=== PATIENT | female | born 1985 | race Caucasian/White ===

== ENCOUNTER 2018-03-28 14:10 | Inpatient (IN) | payer OTHER, SELFPAY ==
[2018-03-28 14:57] VITALS: BMI 30.2
[2018-03-28] MEDS ORDERED: Bupivacaine 0.75% W/DEXTROSE 8.25% 2 ML AMP ONE (15:34)
[2018-03-28] MEDS ORDERED: Morphine PF 1 MG/ML SYR ONE (15:35)
[2018-03-28] MEDS ORDERED: Lidocaine 1% PF 5 ML VIAL ONE (15:36)
[2018-03-28] MEDS ORDERED: ePHEDrine/0.9% NaCl/PF SYRINGE 50 mg/10 ml ONE (15:46)
[2018-03-28] MEDS ORDERED: Oxytocin 10 UNITS/ML VIAL ONE ×2 (16:16→16:17)
[2018-03-28] MEDS ORDERED: Ketorolac Tromethamine 30 MG/ML VIAL ONE (16:16)
[2018-03-28 16:19] LABS: Actual Bicarbonate (HCO3v) 24 mEq/L (22-28); Base Excess -3.4 mEq/L (-2.0 to +3.0); pH (Cord, venous) 7.29 (7.32-7.43)
[2018-03-28 16:20] LABS: Base Excess (BEa) -3.7 mEq/L (-2.0 to +3.0)
[2018-03-28] MEDS ORDERED: Ondansetron HCl/PF 4 MG/2 ML Vial IVP PRN ×5 (16:21→17:39)
[2018-03-28] MEDS ORDERED: Promethazine HCl 25 MG/ML VIAL IM PRN ×2 (16:21→17:06)
[2018-03-28] MEDS ORDERED: Ketorolac Tromethamine 30 MG/ML VIAL IVP PRN (16:21)
[2018-03-28] MEDS ORDERED: Naloxone HCl 0.4 mg/ml Vial IVP PRN ×4 (16:21→17:06)
[2018-03-28] MEDS ORDERED: HYDROmorphone 2 MG/ML VIAL SLOW IVP PRN ×2 (16:21→17:06)
[2018-03-28] MEDS ORDERED: diphenhydrAMINE 50 MG/ML VIAL IVP PRN ×2 (16:21→17:06)
[2018-03-28] MEDS ORDERED: Meperidine HCl/PF 25 MG/ML VIAL SLOW IVP PRN ×2 (16:21→17:06)
[2018-03-28] MEDS ORDERED: Naloxone HCl 0.4 mg/ml Vial IV PRN ×2 (16:21→17:06)
[2018-03-28] MEDS ORDERED: Eucerin (Mineral Oil/Petrolatum,White) 30 gm Jar TOP PRN ×2 (16:21→17:06)
[2018-03-28] MEDS ORDERED: Promethazine HCl 25 MG SUPP PR PRN ×2 (16:21→17:06)
[2018-03-28] MEDS ORDERED: Dexamethasone 4 mg/ml Vial ONE (16:26)
[2018-03-28] MEDS ORDERED: Ketorolac Tromethamine 30 MG/ML VIAL IVP SCH ×2 (16:30→17:15)
[2018-03-28] MEDS ORDERED: Communication Order-Pharmacy FS SCH ×2 (16:30→17:15)
[2018-03-28] MEDS ORDERED: Bicitra 30 ML UDCUP ONE (17:37)
[2018-03-28] MEDS ORDERED: CEFAZOLIN/Water 2 GM/20 ML SYRINGE ONE (17:37)
[2018-03-28] MEDS ORDERED: Zolpidem Tartrate 5 MG TAB PO PRN (17:39)
[2018-03-28] MEDS ORDERED: Milk Of Magnesia 30 ML UDCUP PO PRN (17:39)
[2018-03-28] MEDS ORDERED: Adacel (T-DAP) 0.5 ML VIAL IM ONE (17:39)
[2018-03-28] MEDS ORDERED: Bisacodyl 10 MG SUPP PR PRN (17:39)
[2018-03-28] MEDS ORDERED: Benzocaine/Menthol 20-0.5% 60 ML CAN TOP PRN (17:39)
[2018-03-28] MEDS ORDERED: Preparation H Ointment 28 GM TUBE PR PRN (17:39)
[2018-03-28] MEDS ORDERED: Lanolin Ointment 7 GM TUBE TOP PRN (17:39)
[2018-03-28] MEDS ORDERED: NS / Oxytocin 40 units/1000ml 1,000 ML ONE (17:40)
[2018-03-28] MEDS ORDERED: NS / Oxytocin 40 units/1000ml 1,000 ML IV SCH (17:45)
[2018-03-28 18:48] LABS: Hemoglobin 12.1 g/dL (12.0-16.0); Mean Corpuscular HGB CONC 35.2 g/dL (32.0-36.0); Mean Corpuscular Hemoglobin 32.3 pg (27.0-31.0); Mean Corpuscular Volume 91.7 fL (78.0-98.0); Mean Platelet Volume 8.3 fL (7.4-10.4); Platelet Count 201 thou/uL (130-400); RBC Distribution Width 11.2 % (11.5-14.5); Red Blood Cell (RBC) Count 3.74 mill/uL (4.20-5.40); White Blood Cell (WBC) Count 21.5 thou/uL (4.8-10.8)
[2018-03-28 19:39] LABS: HBSAB Concentration 0.93 mIU/mL; HIV (1/2) Antibody/Antigen Non-Reactive (NonReactive); HIV 1/2 INDEX 0.14 S/CO (<1.00); Hep B Surf AB Non-Reactive (NonReactive)
[2018-03-28] MEDS: Ketorolac Tromethamine 30 MG/ML VIAL IVP PRN (23:38)
[2018-03-28] MEDS: Docusate Calcium (SURFAK) 240 MG CAP PO SCH (23:38)
[2018-03-29] MEDS: Ketorolac Tromethamine 30 MG/ML VIAL IVP PRN (05:54)
[2018-03-29] MEDS: diphenhydrAMINE 25 MG CAP PO PRN ×2 (06:28→13:59)
[2018-03-29] MEDS: Docusate Calcium (SURFAK) 240 MG CAP PO SCH ×2 (09:14→19:49)
[2018-03-29] MEDS: Prenatal Vitamin 1 TAB PO SCH (09:14)
[2018-03-29] MEDS: Ferrous Sulfate 325 MG TAB PO SCH ×2 (09:15→18:32)
[2018-03-29 11:47] LABS: Hemoglobin 11.5 g/dL (12.0-16.0); Mean Corpuscular HGB CONC 35.1 g/dL (32.0-36.0); Mean Corpuscular Hemoglobin 32.6 pg (27.0-31.0); Mean Corpuscular Volume 92.7 fL (78.0-98.0); Platelet Count 179 thou/uL (130-400); RBC Distribution Width 11.3 % (11.5-14.5); Red Blood Cell (RBC) Count 3.51 mill/uL (4.20-5.40); White Blood Cell (WBC) Count 20.1 thou/uL (4.8-10.8)
[2018-03-29] MEDS: HYDROcodone/Acetaminophen 5/325 mg Tablet PO PRN (13:59)
[2018-03-29] MEDS: Lactated Ringer's 1,000 ML IV SCH (18:29)
[2018-03-29] MEDS: Ibuprofen 800 MG TAB PO SCH (19:49)
[2018-03-30] MEDS: HYDROcodone/Acetaminophen 5/325 mg Tablet PO PRN ×3 (02:21→20:27)
[2018-03-30] MEDS: Lactated Ringer's 1,000 ML IV SCH ×5 (03:18→22:28)
[2018-03-30] MEDS: Ibuprofen 800 MG TAB PO SCH ×3 (05:13→22:17)
[2018-03-30] MEDS: Prenatal Vitamin 1 TAB PO SCH (08:41)
[2018-03-30] MEDS: Docusate Calcium (SURFAK) 240 MG CAP PO SCH ×2 (08:41→22:12)
[2018-03-30] MEDS: Ferrous Sulfate 325 MG TAB PO SCH ×2 (08:44→17:48)
[2018-03-31] MEDS: Ibuprofen 800 MG TAB PO SCH (05:39)
[2018-03-31] MEDS: Docusate Calcium (SURFAK) 240 MG CAP PO SCH (10:31)
[2018-03-31] MEDS: Prenatal Vitamin 1 TAB PO SCH (10:32)
[2018-03-31] MEDS: Ferrous Sulfate 325 MG TAB PO SCH (10:32)
[2018-03-31] MEDS: HYDROcodone/Acetaminophen 5/325 mg Tablet PO PRN (10:35)
[2018-03-31 10:56] VITALS: BP 109/75; TEMP 98.1
== END 2018-03-31 12:15 | disposition home or self-care (01) | DRG 766 ==
LOC: L&D/OP 14:10 → L&D 15:27 → 3SW 19:21
PROVIDERS: ADMIT Obstetrics & Gynecology; ATTEND Obstetrics & Gynecology
PROC: 10D00Z1 Extraction of Products of Conception, Low, Open Approach (ICD-10-PCS; principal; 2018-03-28)
DX: O34.211 Maternal care for low transverse scar from previous cesarean delivery (principal); Z37.0 Single live birth; O44.20 Partial placenta previa NOS or without hemorrhage, unspecified trimester; O75.82 Onset (spontaneous) of labor after 37 completed weeks of gestation but before 39 completed weeks gestation, with delivery by (planned) cesarean section; Z3A.39 39 weeks gestation of pregnancy; O99.334 Smoking (tobacco) complicating childbirth; F17.210 Nicotine dependence, cigarettes, uncomplicated; K21.9 Gastro-esophageal reflux disease without esophagitis; O99.344 Other mental disorders complicating childbirth; F41.9 Anxiety disorder, unspecified; O75.89 Other specified complications of labor and delivery; O76 Abnormality in fetal heart rate and rhythm complicating labor and delivery
CPT/HCPCS: 36415; 51702; 82805; 85027; 86706; 86762; 86900; 86901; 87389; 99285; J1100; J1885; J2001; J2274; J2310; J2405; J2590; J3490

== ENCOUNTER 2018-10-04 16:33 | Emergency (ER) | payer OTHER ==
[2018-10-04 17:56] LABS: #Eosinphils 0.1 thou/uL (0.0-0.7); #Lymphocytes 2.4 thou/uL (1.20-3.40); #Monocytes 0.8 thou/uL (0.11-0.59); #Neutrophils 9.9 thou/uL (1.40-6.50); %Basophils 0.2 % (0.0-1.0); %Eosinophils 0.7 % (0.0-10.0); %Lymphocytes 18.5 % (21.0-51.0); %Monocytes 5.7 % (0.0-10.0); Hemoglobin 12.7 g/dL (12.0-16.0); Mean Corpuscular HGB CONC 33.8 g/dL (32.0-36.0); Mean Corpuscular Hemoglobin 30.3 pg (27.0-31.0); Mean Corpuscular Volume 89.7 fL (78.0-98.0); Platelet Count 224 thou/uL (130-400); RBC Distribution Width 12.6 % (11.5-14.5); White Blood Cell (WBC) Count 13.2 thou/uL (4.8-10.8)
--- NOTE | 2018-10-04 21:06 | ULT ---
PELVIC ULTRASOUND 10/04/18 HISTORY: patient. Pain. COMPARISON: None. TECHNIQUE: Sagittal and transverse imaging of the gravid uterus is performed. FINDINGS: The uterus is identified. There is a single intrauterine gestation with vertex presentation. Right si ded placenta is identified. Placenta appears to cover the internal cervical os, worrisome for previa. Cervical length is difficult to assess. Along the margin of the placenta, near the intracervical os is a 0.7 x 0.6 x 1.1 cm hypoechoic focus with vascular flow. The possibility of a small placental mar ginal hemorrhage cannot be completely excluded. BIOMETRY: BPD 2.60 cm 14 weeks, 4 days Head circumference 9.92 cm 14 weeks, 4 days Abdominal circumference 7.77 cm 14 weeks, 1 day Femur length 1.29 cm 13 weeks, 6 days Average age by sonography is 14 weeks, 1 day. Estimated weight is not given. heart tone with a rate of 162 beats per minute. IMPRESSION: Single intrauterine gestation. There are heart tones with a rate of 162 beats per minute. There is evidence of placenta previa with a possible small focus of hemorrhage along the margin of th e placenta at the level of the lower uterine segment. Obstetric consultation is recommended. POS: [facility]
== END 2018-10-04 22:07 | disposition left against medical advice (07) ==
LOC: ERS 16:33
DX: Z53.21 Procedure and treatment not carried out due to patient leaving prior to being seen by health care provider (principal)
CPT/HCPCS: 36415; 76856; 84702; 85025; 86900; 86901; 93976

== ENCOUNTER 2018-12-17 09:26 | Emergency (ER) | payer OTHER | END 2018-12-17 09:58 | disposition home or self-care (01) | LOC: ERS 09:26 | DX: O99.712 Diseases of the skin and subcutaneous tissue complicating pregnancy, second trimester (principal); L73.9 Follicular disorder, unspecified; O99.332 Smoking (tobacco) complicating pregnancy, second trimester; F17.210 Nicotine dependence, cigarettes, uncomplicated; Z3A.23 23 weeks gestation of pregnancy | CPT/HCPCS: 99283 ==